=== PATIENT | male | born 1985 | race Two or more races ===

== ENCOUNTER 2019-11-28 15:55 | Emergency (ER) | payer OTHER ==
[~2019-11-28] VITALS: Ht 180.3 cm; Wt 126.2 kg
[2019-11-28 15:55] VITALS: BP 145/66
[2019-11-28] MEDS ORDERED: HYDR-3165 PO (17:15)
[2019-11-28] MEDS ORDERED: IBUP600T16 PO (17:15)
--- NOTE | 2019-11-28 17:16 | PHYS DOC ---
Past History Past Medical History: No Pertinent History Past Surgical History: Other Additional Past Surgical Histo: LBTK Alcohol Use: Occasionally General Adult EDM: Chief Complaint: BACK PAIN - NO INJURY HPI: HPI: 34-year-old male past medical history significant for below the knee amputation () and h/o L5-S1 disc herniation 2 yrs ago, presents to the ed with c/o midline low back pain at the same location as prior, with sharp pain radiating down his left leg. States last exacerbation he was unable to walk but states he is comfortable came to the ED for analgesia. ROS: No associated rash, IV drug use, fever, saddle anesthesia, urine or bowel retention or incontinence, sensory or motor deficits, weakness or paralysis. Review of Systems: Review of Systems: Constitutional: Denies fever or chills Eyes: Denies change in visual acuity HENT: Denies nasal congestion or sore throat Respiratory: Denies cough or shortness of breath Cardiovascular: Denies chest pain GI: Denies abdominal pain, nausea, vomiting, bloody stools or diarrhea : Denies dysuria, hematuria or flank pain Musculoskeletal: Denies joint pain Integument: Denies rash Neurologic: Denies headache, focal weakness or sensory changes Endocrine: Denies polyuria or polydipsia Lymphatic: Denies swollen glands Psychiatric: Denies depression or anxiety Heart Score: Risk Factors: Risk Factors: DM, Current or recent (<one month) smoker, HTN, HLP, family history of CAD, obesity. Risk Scores: Score 0 - 3: 2.5% MACE over next 6 weeks - Discharge Home Score 4 - 6: 20.3% MACE over next 6 weeks - Admit for Clinical Observation Score 7 - 10: 72.7% MACE over next 6 weeks - Early Invasive Strategies Allergies: Allergies: Allergies Coded Allergies Type Severity Reaction Last Updated Verified No Known Drug Allergies 11/28/19 No Physical Exam: PE: Constitutional: Well developed, well nourished, no acute distress, non-toxic appearance. [] HENT: Normocephalic, atraumatic, bilateral external ears normal, oropharynx moist, no oral exudates, nose normal. [] Eyes: PERRLA, EOMI, conjunctiva normal, no discharge. [] Neck: Normal range of motion, no tenderness, supple, no stridor. [] Cardiovascular:Heart rate regular rhythm, no murmur [] Lungs & Thorax: Bilateral breath sounds clear to auscultation [] Abdomen: Bowel sounds normal, soft, no tenderness, no masses, no pulsatile masses. [] Skin: Warm, dry, no erythema, no rash. [] Back: No tenderness, no CVA tenderness. [] Extremities: No tenderness, no cyanosis, no clubbing, ROM intact, no edema. [] Neurologic: Alert and oriented X 3, normal motor function, normal sensory function, no focal deficits noted. [] Psychologic: Affect normal, judgement normal, mood normal. [] Current Patient Data: Vital Signs: Vital Signs Date Time Temp Pulse Resp B/P (MAP) Pulse Ox O2 Delivery O2 Flow Rate FiO2 11/28/19 15:55 98.1 53 16 145/66 (92) 97 Room Air EKG: EKG: [] Radiology/Procedures: Radiology/Procedures: [] Course & Med Decision Making: Course & Med Decision Making Pertinent Labs and Imaging studies reviewed. (See chart for details) Concern for exacerbation of lumbosacral back pain in the absence of any ne urologic deficits. No indication for imaging at this time. Patient with steady gait and neurovascularly intact. Patient appears very mature and responsible was educated on use of medications prescribed. Tricked ED return precautions were given for neurologic deficits or paralysis or anesthesia. Encouraged urgent outpatient follow-up with PMD and Ortho. Life-threatening processes were considered but are low suspicion at this time, given history and physical exam. Pt was educated on all prescription medications and adverse effects. All patient's questions were answered and pt was stable at time of discharge. Differential includes aortic dissection, cauda equina syndrome, transverse myelitis, spinal cord compression, epidural abscess or hematoma, osteomyelitis, disc herniation, surgical abdomen, stable or unstable fracture, renal colic/urosepsis, musculoskeletal injury, traumatic injury, intraabdominal or pelvic bleeding, I spoken with the patient and her caregivers. I explained the patient's condition, diagnoses and treatment plan based on the information available to me at this time. I have answered the patient and her caregiver's questions and addressed any concerns. The patient and her caregivers have a good understanding of patient's diagnosis, condition and treatment plan as can be expected at this point. Vital signs have been stable. Patient's condition is stable and appropriate for discharge from the emergency department. Patient will pursue further outpatient evaluation with primary care physician or other designated or consulting physician as outlined in the discharge instructions. The patient and/or caregivers are agreeable to this plan of care and follow-up instructions have been explained in detail. The patient and/or caregivers have received these instructions in written form and have expressed an understanding of the discharge instructions. The patient and/or caregivers are aware that any significant change of condition or worsening of symptoms should prompt immediate return to this or the closest emergency department or call to 911. Adriana Disclaimer: Adriana Disclaimer: This electronic medical record was generated, in whole or in part, using a voice recognition dictation system. Departure Departure: Impression: Primary Impression: Back pain Additional Impression: Herniation of intervertebral disc between L5 and S1 Disposition: HOME/RESIDENCE PRIOR TO ADM Condition: STABLE Referrals: PCP,NO (PCP) Patient Instructions: Back Pain, Adult, Herniated Disk Additional Instructions: Jacob Barillas MD Primary Specialties Orthopaedic Surgery Sports Medicine [facility] Address: [address] [place] [address] Scripts Ibuprofen (IBUPROFEN) 600 Mg Tablet 600 MG PO Q6HRS for headache, #20 TAB Prov: ELENITA MARTINEZ DO 11/28/19 Hydrocodone Bit/Acetaminophen (NORCO 5-325 TABLET) 1 Each Tablet 1 TAB PO PRN Q6HRS PRN for PAIN for 3 Days, #12 TAB 0 Refills Prov: ELENITA MARTINEZ DO 11/28/19 Justification of Admission: Justification of Admission: Justification of Admission Dx: N/A ELENITA MARTINEZ DO Nov 28, 2019 17:16
== END 2019-11-28 17:22 | disposition home or self-care (01) ==
LOC: ER 15:55
DX: M51.27 Other intervertebral disc displacement, lumbosacral region (principal); Z89.512 Acquired absence of left leg below knee
CPT/HCPCS: 99283